=== PATIENT | female | born 1970 | race Caucasian/White ===

== ENCOUNTER 2022-05-22 05:51 | Day surgery (SDC) | payer OTHER ==
[~2022-05-22] VITALS: Ht 156.2 cm; Wt 85.3 kg
[2022-05-22] MEDS ORDERED: fentaNYL citrate 0.05 MG/ML VIAL ONE (07:20)
[2022-05-22] MEDS ORDERED: LIDOCAINE 2% 100 MG/5 ML UJET TP ONE (07:20)
[2022-05-22] MEDS ORDERED: fentaNYL citrate 0.05 MG/ML VIAL IVP ONE (08:15)
== END 2022-05-22 08:25 | disposition home or self-care (01) ==
LOC: MDS 05:51 → MMU 05:52 → MDS 08:25
PROVIDERS: ATTEND Internal Medicine Gastroenterology
DX: Z12.11 Encounter for screening for malignant neoplasm of colon (principal); K62.1 Rectal polyp; K42.9 Umbilical hernia without obstruction or gangrene; K76.0 Fatty (change of) liver, not elsewhere classified; Z20.822 Contact with and (suspected) exposure to COVID-19
CPT/HCPCS: 45380; 81025; 87426; J3010